=== PATIENT | male | born 1980 | race Caucasian/White ===

== ENCOUNTER 2020-05-27 09:50 | Emergency (ER) | payer OTHER, SELFPAY ==
[2020-05-27] MEDS ORDERED: Tetracaine 0.5% PF 4 ML BOT ONE (10:06)
[2020-05-27] MEDS ORDERED: Fluorescein Opthalmic Strip ONE (10:06)
== END 2020-05-27 10:39 | disposition home or self-care (01) ==
LOC: BURERS 09:50
DX: S05.01XA Injury of conjunctiva and corneal abrasion without foreign body, right eye, initial encounter (principal); W22.8XXA Striking against or struck by other objects, initial encounter; J45.909 Unspecified asthma, uncomplicated
CPT/HCPCS: 99283